=== PATIENT | male | born 1985 | race African-American/Black ===

== ENCOUNTER 2021-09-14 06:15 | Emergency (ER) | payer OTHER, SELFPAY ==
[2021-09-14] VITALS (12 sets, daily range): BP systolic 92–134; BP diastolic 57–92; PULSE 102–152; RESP 16–36; TEMP 36.9–38.3; O2SAT 95–100; BMI 30.7
--- NOTE | 2021-09-14 06:34 | EKG12_ITS ---
Test Reason : SOB Blood Pressure : / mmHG Vent. Rate : 149 BPM Atrial Rate : 149 BPM P-R Int : 122 ms QRS Dur : 076 ms QT Int : 246 ms P-R-T Axes : 060 029 014 degrees QTc Int : 387 ms Sinus tachycardia Nonspecific ST and T wave abnormality Abnormal ECG Confirmed by UMAIR QUINTERO, CHRIS ([id number]), editor index EVELIN HDEZ ([id number]) on 09/15/2021 11:01:51 AM Referred By: MATHIEU Confirmed By:CHRIS BLOCK MD
--- NOTE | 2021-09-14 06:35 | EDS_ITS ---
HPI <Dr. Adele Hart DO - Last Filed: 09/16/21 08:16> History of Present Illness Chief Complaint: Shortness of Breath Informant: patient Narrative Narrative: Is a 36-year-old male with no significant past medical history presenting with fever, shaking chills and generalized malaise. He states his mouth feels very dry and is sore. Symptoms started about 3 days ago. Currently denies any shortness of breath, difficulty breathing or chest pain. Notes when he has the shaking chills he does have some chest pain. Last had Tylenol yesterday. Is in town from [place] for work. States he does not take any medicine on a daily basis. Denies any social abdominal pain, nausea, vomiting or change in bowel movements. Denies any urinary symptoms however he notes that his urine has been very dark lately. No other complaints at this time. States he has been thirsty But is not had increased urination. denies any sick contacts. PFSH <Dr. Adele Hart DO - Last Filed: 09/16/21 08:16> [facility] Medical History no medical history Home Medications ondansetron 4 mg disintegrating tablet 4 mg PO Q8H PRN nausea and vomiting #14 tabs 09/14/21 [Rx Last Taken Unknown] Allergy/AdvReac Type Severity Reaction Status Date / Time No Known Allergies Allergy Verified 09/14/21 06:20 Social History Smoking Status: Never smoker ROS <Dr. Adele Hart DO - Last Filed: 09/16/21 08:16> ROS ED Constitutional Constitutional ED: Reports chills and fever(s) Eyes Eyes: Denies blurry vision or change in vision ENT ENT ED: Reports sore throat; Denies rhinorrhea Cardiovascular Cardiovascular: Reports chest pain; Denies palpitations or racing heartbeat Respiratory/Chest Respiratory/Chest: Denies cough or dyspnea Gastrointestinal Gastrointestinal: Denies abdominal pain, constipation, diarrhea, nausea or vomiting Genitourinary Genitourinary ED: Reports other Details: Dark urine ; Denies dysuria, hematuria or urinary frequency Integumentary Denies rash Neurologic Neurologic: Denies headache(s) or paresthesias Psychiatric Psychiatric: Denies anxiety EXAM <Dr. Adele Godman, DO - Last Filed: 09/16/21 08:16> Physical Exam Const Vital Signs: 09/14/21 06:17 09/14/21 06:16 09/14/21 06:23 Temperature 101 F H Temperature Source Oral Pulse Rate 147 H 152 H Respiratory Rate 36 H 24 H Respiratory Effort Short of Breath Labored Respiratory Depth Shallow Respiratory Pattern Tachypnea Blood Pressure 134/92 H Blood Pressure Mean 106 Pulse Ox 97 95 Oxygen Delivery Method Room Air Room Air Room Air 09/14/21 06:47 09/14/21 06:16 09/14/21 08:00 Temperature 99.6 F H Temperature Source Oral Pulse Rate 151 H Respiratory Rate 29 H Respiratory Effort Respiratory Depth Respiratory Pattern Blood Pressure 134/92 H Blood Pressure Mean 106 Pulse Ox 96 Oxygen Delivery Method Room Air Room Air 09/14/21 08:46 09/14/21 08:56 09/14/21 09:13 Temperature 99.7 F H Temperature Source Oral Pulse Rate 109 H 108 H 108 H Respiratory Rate 20 H 18 16 Respiratory Effort Respiratory Depth Respiratory Pattern Blood Pressure 109/57 L 129/75 H 105/73 Blood Pressure Mean 74 93 83 Pulse Ox 97 98 96 Oxygen Delivery Method Room Air Room Air Room Air 09/14/21 09:49 09/14/21 09:50 09/14/21 10:33 Temperature 100.0 F H 100.0 F H Temperature Source Oral Oral Pulse Rate 102 H 111 H Respiratory Rate 24 H 16 Respiratory Effort Respiratory Depth Respiratory Pattern Blood Pressure 130/80 H 92/58 L Blood Pressure Mean 96 69 Pulse Ox 100 99 Oxygen Delivery Method Room Air Room Air 09/14/21 11:30 Temperature 98.4 F Temperature Source Oral Pulse Rate 107 H Respiratory Rate 25 H Respiratory Effort Respiratory Depth Respiratory Pattern Blood Pressure 123/86 H Blood Pressure Mean 98 Pulse Ox 99 Oxygen Delivery Method Room Air Positive well nourished and well developed General Appearance ED: well developed and NAD HEENT Reports dry mucous membranes Negative for trauma Mouth ED: Yes dry mucous membranes Mouth: dry mucous membranes Eyes PERRL and EOMs intact bilaterally Neck no lymphadenopathy and supple Neck Narrative: No meningeal signs Chest Wall inspection of chest normal Resp clear to auscultation bilaterally Resp Narrative: Tachypneic Cardio regular rhythm Rate: tachycardic GI non-tender and non-distended Auscultation: hypoactive bowel sounds Palpation: soft; Negative for tender or guarding Back/Spine no CVA tenderness Extremity normal to inspection Neuro oriented x3 Neuro Narrative: No focal deficits appreciated Motor Exam: general weakness Psych mental status grossly normal Skin no rashes or lesions noted and no wounds <Dr. Joshua Paez, DO - Last Filed: 09/14/21 12:23> Physical Exam Const Vital Signs: 09/14/21 06:17 09/14/21 06:16 09/14/21 06:23 Temperature 101 F H Temperature Source Oral Pulse Rate 147 H 152 H Respiratory Rate 36 H 24 H Respiratory Effort Short of Breath Labored Respiratory Depth Shallow Respiratory Pattern Tachypnea Blood Pressure 134/92 H Blood Pressure Mean 106 Pulse Ox 97 95 Oxygen Delivery Method Room Air Room Air Room Air 09/14/21 06:47 09/14/21 06:16 09/14/21 08:00 Temperature 99.6 F H Temperature Source Oral Pulse Rate 151 H Respiratory Rate 29 H Respiratory Effort Respiratory Depth Respiratory Pattern Blood Pressure 134/92 H Blood Pressure Mean 106 Pulse Ox 96 Oxygen Delivery Method Room Air Room Air 09/14/21 08:46 09/14/21 08:56 09/14/21 09:13 Temperature 99.7 F H Temperature Source Oral Pulse Rate 109 H 108 H 108 H Respiratory Rate 20 H 18 16 Respiratory Effort Respiratory Depth Respiratory Pattern Blood Pressure 109/57 L 129/75 H 105/73 Blood Pressure Mean 74 93 83 Pulse Ox 97 98 96 Oxygen Delivery Method Room Air Room Air Room Air 09/14/21 09:49 09/14/21 09:50 09/14/21 10:33 Temperature 100.0 F H 100.0 F H Temperature Source Oral Oral Pulse Rate 102 H 111 H Respiratory Rate 24 H 16 Respiratory Effort Respiratory Depth Respiratory Pattern Blood Pressure 130/80 H 92/58 L Blood Pressure Mean 96 69 Pulse Ox 100 99 Oxygen Delivery Method Room Air Room Air 09/14/21 11:30 Temperature 98.4 F Temperature Source Oral Pulse Rate 107 H Respiratory Rate 25 H Respiratory Effort Respiratory Depth Respiratory Pattern Blood Pressure 123/86 H Blood Pressure Mean 98 Pulse Ox 99 Oxygen Delivery Method Room Air MDM <Dr. Adele Hart, DO - Last Filed: 09/16/21 08:16> [facility] MDM Narrative Medical decision making narrative: Patient is evaluated for generalized weakness, dehydration, fever and rigors. Initially he denied any shortness of breath for me. Patient's vital signs remarkable for tachycardia, tachypnea and fever. He is not hypoxic. Clinically he appears very dehydrated. Septic work-up initiated he is ordered 2 L of normal saline. Patient will be signed out to oncoming provider pending work-up, reevaluation and further disposition. Clinically suspect patient has something infectious going on is causing all of his symptoms. Lab Data Attestation: I reviewed the patient's lab results. Labs: Laboratory Results - last 24 hr 09/14/21 09/14/21 09/14/21 06:40 06:40 06:40 WBC 7.2 RBC 4.77 Hgb 13.9 Hct 41.3 MCV 86.6 MCH 29.1 MCHC 33.7 RDW Std Deviation 39.8 RDW Coeff of Honey 12.6 Plt Count 160 MPV 10.8 Immature Gran % (Auto) 0.300 Neut % (Auto) 89.7 H Lymph % (Auto) 8.2 L Parke % (Auto) 1.2 Eos % (Auto) 0.0 Baso % (Auto) 0.6 Absolute Neuts (auto) 6.5 Absolute Lymphs (auto) 0.59 L Nucleated RBC % 0 Differential Comment PT INR APTT D-Dimer Quant (PE/DVT) Sodium 137 Potassium 4.5 Chloride 104 Carbon Dioxide 21.0 Anion Gap 12 BUN 16 Creatinine 1.53 H Estim Creat Clear Calc 74.71 Est GFR (MDRD) Af Amer 66 Est GFR (MDRD) Non-Af 55 L BUN/Creatinine Ratio 10.5 Glucose 128 H Lactic Acid 4.2 H* Calcium 8.7 Total Bilirubin 2.80 H AST 67 H ALT 77 H Alkaline Phosphatase 123 H Total Creatine Kinase 160 Troponin I High Sens 11 Total Protein 8.4 H Albumin 3.1 L Globulin 5.3 H Albumin/Globulin Ratio 0.6 L TSH 2.02 Urine Color Urine Clarity Urine pH Ur Specific Drag[place] Urine Protein Urine Glucose (UA) Urine Ketones Urine Occult Blood Urine Nitrite Urine Bilirubin Urine Urobilinogen Ur Leukocyte Esterase Urine RBC Urine WBC Ur Squamous Epith Cells Urine Bacteria Urine Mucus Monoscreen POC Glucose 09/14/21 09/14/21 09/14/21 06:45 06:49 07:15 WBC RBC Hgb Hct MCV MCH MCHC RDW Std Deviation RDW Coeff of Honey Plt Count MPV Immature Gran % (Auto) Neut % (Auto) Lymph % (Auto) Parke % (Auto) Eos % (Auto) Baso % (Auto) Absolute Neuts (auto) Absolute Lymphs (auto) Nucleated RBC % Differential Comment PT Cancelled 15.9 H INR Cancelled 1.3 APTT Cancelled 30.2 D-Dimer Quant (PE/DVT) Sodium Potassium Chloride Carbon Dioxide Anion Gap BUN Creatinine Estim Creat Clear Calc Est GFR (MDRD) Af Amer Est GFR (MDRD) Non-Af BUN/Creatinine Ratio Glucose Lactic Acid Calcium Total Bilirubin AST ALT Alkaline Phosphatase Total Creatine Kinase Troponin I High Sens Total Protein Albumin Globulin Albumin/Globulin Ratio TSH Urine Color Urine Clarity Urine pH Ur Specific Drag[place] Urine Protein Urine Glucose (UA) Urine Ketones Urine Occult Blood Urine Nitrite Urine Bilirubin Urine Urobilinogen Ur Leukocyte Esterase Urine RBC Urine WBC Ur Squamous Epith Cells Urine Bacteria Urine Mucus Monoscreen POC Glucose 141 H 09/14/21 09/14/21 09/14/21 07:15 08:17 08:25 WBC RBC Hgb Hct MCV MCH MCHC RDW Std Deviation RDW Coeff of Honey Plt Count MPV Immature Gran % (Auto) Neut % (Auto) Lymph % (Auto) Parke % (Auto) Eos % (Auto) Baso % (Auto) Absolute Neuts (auto) Absolute Lymphs (auto) Nucleated RBC % Differential Comment PT INR APTT D-Dimer Quant (PE/DVT) 4.16 H* Sodium Potassium Chloride Carbon Dioxide Anion Gap BUN Creatinine Estim Creat Clear Calc Est GFR (MDRD) Af Amer Est GFR (MDRD) Non-Af BUN/Creatinine Ratio Glucose Lactic Acid Calcium Total Bilirubin AST ALT Alkaline Phosphatase Total Creatine Kinase Troponin I High Sens Total Protein Albumin Globulin Albumin/Globulin Ratio TSH Urine Color Yellow Urine Clarity Sl. Cloudy Urine pH 6.0 Ur Specific Dragoon 1.020 Urine Protein 100 H Urine Glucose (UA) Normal Urine Ketones 15 H Urine Occult Blood 250 H Urine Nitrite Negative Urine Bilirubin 1 H Urine Urobilinogen 8 H Ur Leukocyte Esterase 25 H Urine RBC 25-50 SEEN Urine WBC 0-5 SEEN Ur Squamous Epith Cells 0-5 SEEN Urine Bacteria 1+ Urine Mucus 0 SEEN Monoscreen Negative POC Glucose 09/14/21 09/14/21 10:04 11:28 WBC RBC Hgb Hct MCV MCH MCHC RDW Std Deviation RDW Coeff of Honey Plt Count MPV Immature Gran % (Auto) Neut % (Auto) Lymph % (Auto) Parke % (Auto) Eos % (Auto) Baso % (Auto) Absolute Neuts (auto) Absolute Lymphs (auto) Nucleated RBC % Differential Comment PT INR APTT D-Dimer Quant (PE/DVT) Sodium Potassium Chloride Carbon Dioxide Anion Gap BUN Creatinine Estim Creat Clear Calc Est GFR (MDRD) Af Amer Est GFR (MDRD) Non-Af BUN/Creatinine Ratio Glucose Lactic Acid 1.5 Calcium Total Bilirubin AST ALT Alkaline Phosphatase Total Creatine Kinase Troponin I High Sens 17 Total Protein Albumin Globulin Albumin/Globulin Ratio TSH Urine Color Urine Clarity Urine pH Ur Specific Dragoon Urine Protein Urine Glucose (UA) Urine Ketones Urine Occult Blood Urine Nitrite Urine Bilirubin Urine Urobilinogen Ur Leukocyte Esterase Urine RBC Urine WBC Ur Squamous Epith Cells Urine Bacteria Urine Mucus Monoscreen POC Glucose Radiography Chest X-Ray - ED: 1 View, Read by ED Physician, Read by Radiologist and No Acute Disease Diagnostic Testing: Clinical Impression(s) from Imaging Studies Chest X-Ray 09/14/21 06:52 IMPRESSION: Hypoinflation without acute abnormal cardiopulmonary finding. Electronically Signed: Leonidas Britt MD at 7:10 EDT , Chest CTA 09/14/21 08:26 IMPRESSION: Solid and groundglass pulmonary nodules measuring up to 10 mm in the right upper lobe and 8 mm in the right lower lobe, likely infectious or inflammatory given patient age and absent a history of risk factors. Recommend close short-term follow-up to resolution to exclude other etiologies. No evidence of pulmonary embolism. Electronically Signed: Jane Hemphill MD at 9:23 EDT , Rhythm Strip Rhythm Strip: Sinus Tach Rate: 149 Ectopy: None EKG Initial EKG: Attestation: I personally reviewed and interpreted this EKG as follows: Interpretation: Sinus Tachycardia Comments: Sinus tachycardia at a rate of 149 Normal axis Normal intervals Nonspecific ST segment changes Prior EKG tracings: not available for review Prior: No Prior <Dr. Joshua Paez, DO - Last Filed: 09/14/21 12:23> [facility] MDM Narrative Medical decision making narrative: Patient is evaluated for generalized weakness, dehydration, fever and rigors. Initially he denied any shortness of breath for me. Patient's vital signs remarkable for tachycardia, tachypnea and fever. He is not hypoxic. Clinically he appears very dehydrated. Septic work-up initiated he is ordered 2 L of normal saline. Patient will be signed out to oncoming provider pending work-up, reevaluation and further disposition. Clinically suspect patient has something infectious going on is causing all of his symptoms. Dr. Paez dictating: Patient signed out to me pending blood work and imaging. Appears to have viral syndrome. He was given Tylenol for his fever. IV fluids were also given. He was significantly tachycardic on arrival. His EKG shows a sinus tachycardia with a rate of 149 bpm on my interpretation. CBC shows no leukocytosis and patient is lymphopenic. Creatinine is 1.5 with no comparison as the patient is from out of town. Presumably he is dehydrated and was already ordered 2 L of IV fluids. Electrolytes within normal limits. Lactic acid was elevated at 4.2. Patient has transaminitis with a total bilirubin of 2.8, AST 67, ALT 77, alkaline phosphatase 123. I suspect these are elevated because I believe the patient likely has COVID 19. TSH is normal. CPK 160. Coagulation studies unremarkable. Urinalysis shows no infection. Rapid strep, Monospot, rapid COVID testing are negative. Initial high-sensitivity troponin was 11. Delta troponin was 17. There was no significant interval change in the patient's not reporting any chest pain and only minimal shortness of breath. He did have an elevated D-dimer today and had a CTA of the chest which appeared to show solid and groundglass pulmonary nodules. Patient feels very much improved after treatment. COVID PCR was sent however there is a delay in the results of this and the patient does not want to wait an extra 2 hours to wait for that here. He will receive a text when this results. Lactic acid has normalized. Patient counseled to try to use Tylenol for fevers. He will be given Zofran for nausea. He is counseled to drink plenty of fluids. [place] and will need to see his primary care physician for follow-up for his pulmonary nodules and abnormal CT findings. Return precautions discussed. Impression: 1. Viral syndrome 2. Febrile illness 3. Tachycardia 4. Acute kidney injury 5. Dehydration 6. Pulmonary nodules Lab Data Attestation: I reviewed the patient's lab results. Labs: Laboratory Results - last 24 hr 09/14/21 09/14/21 09/14/21 06:40 06:40 06:40 WBC 7.2 RBC 4.77 Hgb 13.9 Hct 41.3 MCV 86.6 MCH 29.1 MCHC 33.7 RDW Std Deviation 39.8 RDW Coeff of Honey 12.6 Plt Count 160 MPV 10.8 Immature Gran % (Auto) 0.300 Neut % (Auto) 89.7 H Lymph % (Auto) 8.2 L Parke % (Auto) 1.2 Eos % (Auto) 0.0 Baso % (Auto) 0.6 Absolute Neuts (auto) 6.5 Absolute Lymphs (auto) 0.59 L Nucleated RBC % 0 Differential Comment PT INR APTT D-Dimer Quant (PE/DVT) Sodium 137 Potassium 4.5 Chloride 104 Carbon Dioxide 21.0 Anion Gap 12 BUN 16 Creatinine 1.53 H Estim Creat Clear Calc 74.71 Est GFR (MDRD) Af Amer 66 Est GFR (MDRD) Non-Af 55 L BUN/Creatinine Ratio 10.5 Glucose 128 H Lactic Acid 4.2 H* Calcium 8.7 Total Bilirubin 2.80 H AST 67 H ALT 77 H Alkaline Phosphatase 123 H Total Creatine Kinase 160 Troponin I High Sens 11 Total Protein 8.4 H Albumin 3.1 L Globulin 5.3 H Albumin/Globulin Ratio 0.6 L TSH 2.02 Urine Color Urine Clarity Urine pH Ur Specific Dragoon Urine Protein Urine Glucose (UA) Urine Ketones Urine Occult Blood Urine Nitrite Urine Bilirubin Urine Urobilinogen Ur Leukocyte Esterase Urine RBC Urine WBC Ur Squamous Epith Cells Urine Bacteria Urine Mucus Monoscreen POC Glucose 09/14/21 09/14/21 09/14/21 06:45 06:49 07:15 WBC RBC Hgb Hct MCV MCH MCHC RDW Std Deviation RDW Coeff of Honey Plt Count MPV Immature Gran % (Auto) Neut % (Auto) Lymph % (Auto) Parke % (Auto) Eos % (Auto) Baso % (Auto) Absolute Neuts (auto) Absolute Lymphs (auto) Nucleated RBC % Differential Comment PT Cancelled 15.9 H INR Cancelled 1.3 APTT Cancelled 30.2 D-Dimer Quant (PE/DVT) Sodium Potassium Chloride Carbon Dioxide Anion Gap BUN Creatinine Estim Creat Clear Calc Est GFR (MDRD) Af Amer Est GFR (MDRD) Non-Af BUN/Creatinine Ratio Glucose Lactic Acid Calcium Total Bilirubin AST ALT Alkaline Phosphatase Total Creatine Kinase Troponin I High Sens Total Protein Albumin Globulin Albumin/Globulin Ratio TSH Urine Color Urine Clarity Urine pH Ur Specific Drag[place] Urine Protein Urine Glucose (UA) Urine Ketones Urine Occult Blood Urine Nitrite Urine Bilirubin Urine Urobilinogen Ur Leukocyte Esterase Urine RBC Urine WBC Ur Squamous Epith Cells Urine Bacteria Urine Mucus Monoscreen POC Glucose 141 H 09/14/21 09/14/21 09/14/21 07:15 08:17 08:25 WBC RBC Hgb Hct MCV MCH MCHC RDW Std Deviation RDW Coeff of Honey Plt Count MPV Immature Gran % (Auto) Neut % (Auto) Lymph % (Auto) Parke % (Auto) Eos % (Auto) Baso % (Auto) Absolute Neuts (auto) Absolute Lymphs (auto) Nucleated RBC % Differential Comment PT INR APTT D-Dimer Quant (PE/DVT) 4.16 H* Sodium Potassium Chloride Carbon Dioxide Anion Gap BUN Creatinine Estim Creat Clear Calc Est GFR (MDRD) Af Amer Est GFR (MDRD) Non-Af BUN/Creatinine Ratio Glucose Lactic Acid Calcium Total Bilirubin AST ALT Alkaline Phosphatase Total Creatine Kinase Troponin I High Sens Total Protein Albumin Globulin Albumin/Globulin Ratio TSH Urine Color Yellow Urine Clarity Sl. Cloudy Urine pH 6.0 Ur Specific Dragoon 1.020 Urine Protein 100 H Urine Glucose (UA) Normal Urine Ketones 15 H Urine Occult Blood 250 H Urine Nitrite Negative Urine Bilirubin 1 H Urine Urobilinogen 8 H Ur Leukocyte Esterase 25 H Urine RBC 25-50 SEEN Urine WBC 0-5 SEEN Ur Squamous Epith Cells 0-5 SEEN Urine Bacteria 1+ Urine Mucus 0 SEEN Monoscreen Negative POC Glucose 09/14/21 09/14/21 10:04 11:28 WBC RBC Hgb Hct MCV MCH MCHC RDW Std Deviation RDW Coeff of Honey Plt Count MPV Immature Gran % (Auto) Neut % (Auto) Lymph % (Auto) Parke % (Auto) Eos % (Auto) Baso % (Auto) Absolute Neuts (auto) Absolute Lymphs (auto) Nucleated RBC % Differential Comment PT INR APTT D-Dimer Quant (PE/DVT) Sodium Potassium Chloride Carbon Dioxide Anion Gap BUN Creatinine Estim Creat Clear Calc Est GFR (MDRD) Af Amer Est GFR (MDRD) Non-Af BUN/Creatinine Ratio Glucose Lactic Acid 1.5 Calcium Total Bilirubin AST ALT Alkaline Phosphatase Total Creatine Kinase Troponin I High Sens 17 Total Protein Albumin Globulin Albumin/Globulin Ratio TSH Urine Color Urine Clarity Urine pH Ur Specific Drag[place] Urine Protein Urine Glucose (UA) Urine Ketones Urine Occult Blood Urine Nitrite Urine Bilirubin Urine Urobilinogen Ur Leukocyte Esterase Urine RBC Urine WBC Ur Squamous Epith Cells Urine Bacteria Urine Mucus Monoscreen POC Glucose Radiography Diagnostic Testing: Clinical Impression(s) from Imaging Studies Chest X-Ray 09/14/21 06:52 IMPRESSION: Hypoinflation without acute abnormal cardiopulmonary finding. Electronically Signed: Leonidas Britt MD at 7:10 EDT , Chest CTA 09/14/21 08:26 IMPRESSION: Solid and groundglass pulmonary nodules measuring up to 10 mm in the right upper lobe and 8 mm in the right lower lobe, likely infectious or inflammatory given patient age and absent a history of risk factors. Recommend close short-term follow-up to resolution to exclude other etiologies. No evidence of pulmonary embolism. Electronically Signed: Jane Hemphill MD at 9:23 EDT , Discharge Plan Triage Chief Complaint: Shortness of Breath ED Provider: Joshua Paez Dx/Rx/DC Orders Clinical Impression: Tachycardia, Acute febrile illness, Acute dehydration Prescriptions: New ondansetron 4 mg tablet,disintegrating 4 mg PO Q8H PRN (Reason: nausea and vomiting) Qty: 14 0RF Primary Care Provider: Care Physician,No Primary Referrals: Care Physician,No Primary [Primary Care Provider] - Disposition Disposition: Home, Self Care
[2021-09-14] MEDS: 0.9% Normal Saline 1,000 ML 999 ML IV ×2 (06:37→06:44)
[2021-09-14] MEDS: Acetaminophen 500 MG Tablet 1000 MG PO (06:44)
--- NOTE | 2021-09-14 06:52 | RAD_ITS ---
STUDY: X-RAY CHEST REASON FOR EXAM: Male, 36 years old. SOB TECHNIQUE: Portable, upright, AP chest radiograph COMPARISON: None. FINDINGS: Symmetric hypoinflation accentuates the cardiomediastinal silhouette and pulmonary markings. No focal consolidation. There is no demonstrated pleural abnormality. Normal size heart. Normal mediastinum and jackie. Normal visualized pulmonary arteries. Normal visualized aortic arch and descending thoracic aorta. There is no demonstrated abnormality of the visualized soft tissue structures of the upper abdomen. RAD/Chest 1 View (Portable) IMPRESSION: Hypoinflation without acute abnormal cardiopulmonary finding. Electronically Signed: Leonidas Britt MD at 7:10 EDT ,
[2021-09-14 06:54] LABS: Absolute Lymphocyte Count 0.59 X10^3/uL (0.83-4.51); Absolute Neutrophil Count 6.5 X10^3/uL (2.0-7.7); Basophil# 0.04 X10^3/uL; Basophil% 0.6 % (0-1); Hematocrit 41.3 % (40-54); Hemoglobin 13.9 g/dL (13.0-16.5); Lymphocyte # 0.59 X10^3/ul (0.83-4.51); Lymphocyte % 8.2 % (19-41); Mean Corp Hgb Conc 33.7 g/dL (32-36); Mean Corpuscular Hgb 29.1 pg (27.0-32.0); Mean Corpuscular Volume 86.6 fL (80-94); Mean Platelet Vol. 10.8 fl (6.2-12.0); Monocyte# 0.09 X10^3/uL; Monocyte% 1.2 % (0-10); NRBC Flagged by Analyzer 0 % (0-5); Neutrophil # 6.47 X10^3/uL (2.7-7.7); Neutrophil % 89.7 % (47-70); POSITIVE DIFFERENTIAL YES; POSITIVE MORPHOLOGY YES; Platelet Count 160 K/mm3 (150-450); RBC Distribution Width CV 12.6 % (11.6-14.6); RBC Distribution Width SD 39.8 fl (35.1-43.9); Red Blood Count 4.77 M/mm3 (4.6-6.2); White Blood Count 7.2 K/mm3 (4.4-11.0)
[2021-09-14 07:07] LABS: Differential Indicated SCAN CRITERIA MET
[2021-09-14 07:10] LABS: Bedside Glucose 141 mg/dL (74-106)
[2021-09-14 07:19] LABS: ALB/GLOB Ratio 0.6 RATIO (0.9-2.4); AST(SGOT) 67 U/L (15-37); Alanine Aminotransfer ALT/SGPT 77 U/L (16-61); Albumin, Serum 3.1 g/dL (3.2-5.0); Alkaline Phosphatase 123 U/L (45-117); Anion Gap 12 (5-15); BUN 16 mg/dL (7-18); BUN/Creat Ratio 10.5 RATIO (10-20); CPK Total, Creatine Kinase 160 U/L (39-308); Calcium,Total 8.7 mg/dL (8.5-10.1); Chloride 104 mmol/L (98-107); Creatinine, Serum 1.53 mg/dL (0.70-1.30); EST Glomerular Filtration Rate 55 mL/min (>60); Est Glom Filt Rate - Afr Amer 66 mL/min (>60); Estimated Creatinine Clearance 74.71 ml/min; Globulin 5.3 g/dL (2.2-4.2); Glucose 128 mg/dL (74-106); Potassium 4.5 mmol/L (3.5-5.1); Protein, Total 8.4 g/dL (6.4-8.2); Sodium Level 137 mmol/L (136-145); Thyroid Stim Hormone (TSH) 2.02 uIU/mL (0.358-3.74); Troponin-I HS 11 pg/mL (3.0-78.0)
[2021-09-14 07:25] LABS: Lactic Acid 4.2 mmol/L (0.4-1.9)
[2021-09-14 07:56] LABS: International Normalized Ratio 1.3; Prothrombin Time (Protime)PT. 15.9 SECONDS (11.7-14.9)
[2021-09-14 07:57] LABS: Partial Thromboplast Time 30.2 Seconds (24.1-36.2)
[2021-09-14 08:20] LABS: Mucous, Urine 0 SEEN /hpf (<or=2+)
[2021-09-14 08:22] LABS: D-Dimer Quantitative (DVT/PE) 4.16 FEU/ug/m (0.27-0.49)
[2021-09-14 08:23] LABS: Color, Urine Yellow (Yellow); Glucose, Dipstick Normal (Normal); Ketone-Dipstick 15 mg/dl (Negative); Leukocyte Esterase-Dipstick 25 /ul (Negative); Nitrite-Dipstick Negative (Negative); Occult Blood-Urine 250 /ul (Negative); Protein-Dipstick 100 mg/dl (Negative); Urine Bilirubin Dipstick 1 mg/dL (Negative); Urine Clarity Sl. Cloudy (Clear); Urine Urobilinogen 8 mg/dl (Normal)
--- NOTE | 2021-09-14 08:26 | CT_ITS ---
HISTORY: dyspnea. TECHNIQUE: CT angiogram of the chest was performed after the intravenous administration of 100 mL Isovue-370. Post-processing of the angiographic images was performed with multiplanar reformation and 3D reconstruction. Individualized dose optimization techniques were used for this CT. 1165 images. COMPARISON: XR same day FINDINGS: CENTRAL AIRWAYS: Patent. LUNGS: 10 mm solid nodular opacity in the right upper lobe. 6 mm right lower lobe groundglass nodule. 8 mm noncalcified right lower lobe nodule. PLEURA: No pneumothorax or significant pleural effusion. HEART/PERICARDIUM: Heart within normal limits in size. No pericardial effusion. PULMONARY ARTERIES: No filling defect. AORTA/VESSELS: No thoracic aortic aneurysm or dissection flap. MEDIASTINUM/MYA: No pathologically enlarged lymph nodes. OSSEOUS STRUCTURES: Intact. CHEST WALL: Bilateral gynecomastia. UPPER ABDOMEN: Hepatic steatosis. CT/CTA Chest W/WO Contrast IMPRESSION: Solid and groundglass pulmonary nodules measuring up to 10 mm in the right upper lobe and 8 mm in the right lower lobe, likely infectious or inflammatory given patient age and absent a history of risk factors. Recommend close short-term follow-up to resolution to exclude other etiologies. No evidence of pulmonary embolism. Electronically Signed: Jane Hemphill MD at 9:23 EDT ,
[2021-09-14 08:32] LABS: Bacteria 1+ /hpf (None Seen); Red Blood Cells-Urine 25-50 SEEN /hpf (0-5); Squamous Epithelial Cells - UA 0-5 SEEN /hpf (0-5); White Blood Cells 0-5 SEEN /hpf (0-5)
[2021-09-14 10:10] LABS: Internal QC Validated? YES +Cl - CLEAR BKGD; Monotest Negative (Negative)
[2021-09-14 10:24] LABS: Troponin-I HS 17 pg/mL (3.0-78.0)
[2021-09-14] MEDS: Ibuprofen 600 MG Tablet PO (10:44)
[2021-09-14 10:47] LABS: Reflex Lactate? Y
[2021-09-14 11:56] LABS: Lactic Acid 1.5 mmol/L (0.4-1.9)
== END 2021-09-14 12:33 | disposition home or self-care (01) ==
PROVIDERS: Emergency Medicine; Emergency Provider Student in an Organized Health Care Education/Training Program; Visit Provider Student in an Organized Health Care Education/Training Program
DX: B34.9 Viral infection, unspecified (principal); N17.9 Acute kidney failure, unspecified; R50.9 Fever, unspecified; R91.1 Solitary pulmonary nodule; E86.0 Dehydration; R00.0 Tachycardia, unspecified
CPT/HCPCS: 36415; 71045; 71275; 80053; 81001; 82550; 82962; 83605; 84443; 84484; 85025; 85379; 85610; 85730; 86308; 87040; 87077; 87086; 87426; 87635; 87880; 93005; 99284; J7030; Q9967; A4216; U0003; U0005